=== PATIENT | male | born 1945 | race Hispanic/Latino ===

== ENCOUNTER 2022-04-19 13:23 | Inpatient (IN) | payer OTHER ==
[~2022-04-19] VITALS: Ht 172.7 cm; Wt 85.3 kg
[2022-04-19] VITALS (17 sets, daily range): BP systolic 87–152; BP diastolic 40–67
[2022-04-19 13:41] LABS: BASOPHILS % (AUTO) 0.2 % (0.0-5.0); EOSINOPHILS % (AUTO) 18.6 % (0.0-8.0); HEMATOCRIT 46.7 % (42-54); LYMPHOCYTES % (AUTO) 5.3 % (21.0-51.0); MEAN CORPUSCULAR HEMOGLOBIN 31.6 pg (27.0-33.0); MEAN CORPUSCULAR HGB CONC 34.3 g/dL (32.0-36.0); MEAN CORPUSCULAR VOLUME 92.3 fL (79-99); MONOCYTES % (AUTO) 8.6 % (3.0-13.0); NEUTROPHILS % (AUTO) 66.7 % (40.0-77.0); PLATELET COUNT (AUTO) 279 K/uL (130-400); RED BLOOD CELL COUNT(AUTO) 5.06 MIL/uL (4.50-6.20); RED CELL DISTRIBUTION WIDTH 12.5 % (11.0-15.5); WHITE BLOOD COUNT (AUTO) 21.1 K/uL (4.8-10.8)
[2022-04-19 13:50] LABS: CREATININE 1.8 mg/dL (0.5-1.5); POTASSIUM 4.2 mmol/L (3.5-5.1)
[2022-04-19 13:55] LABS: ALBUMIN 3.2 g/dL (3.5-5.0)
[2022-04-19] MEDS ORDERED: ZOSYN 3.375GM +NS 50ML IVPB ONE (14:00)
[2022-04-19] MEDS ORDERED: VANCOMYCIN 1G VIAL IVPB ONE (14:00)
[2022-04-19] MEDS ORDERED: 0.9%NACL 1000ML 1,000 ML IV ONE ×2 (14:30)
[2022-04-19] MEDS ORDERED: VANCOMYCIN 1G/250ML KIT 250 ML IV ONE (14:52)
[2022-04-19] MEDS ORDERED: THIAMINE HCL 100 MG/ML 2ML VIAL IVP SCH (15:30)
[2022-04-19] MEDS ORDERED: ONDANSETRON 4MG INJ IVP PRN ×2 (15:30)
[2022-04-19] MEDS ORDERED: FOLIC ACID 1 MG TABLET PO SCH (15:30)
[2022-04-19] MEDS ORDERED: VANCOMYCIN PROTOCOL PER PHARMACY IV SCH (15:30)
[2022-04-19] MEDS ORDERED: ACETAMINOPHEN 500 MG TABLET PO PRN (15:30)
[2022-04-19] MEDS ORDERED: COMPOUND IV REFRIGERATED 1 EACH IVSOLN MISC PRN (15:30)
[2022-04-19] MEDS: MEROPENEM 1 GM VIAL IVP SCH (16:06)
[2022-04-19] MEDS: CLINDAMYCIN IVPB 600MG/50ML 50 ML IV SCH ×2 (16:06→22:51)
[2022-04-19] MEDS: PANTOPRAZOLE 40 MG/VIAL IVP SCH (16:06)
[2022-04-19] MEDS: 0.9%NACL 1000ML 1,000 ML IV SCH (16:06)
[2022-04-19 16:37] LABS: HEMOGLOBIN A1C 5.4 % (4.0-6.0)
[2022-04-19] MEDS ORDERED: KETOROLAC 15MG/ML VIAL (15MG/ML) ONE (16:53)
[2022-04-19] MEDS ORDERED: HYDROMORPHONE 0.5 MG SYG (0.5MG/0.5ML) ONE (16:56)
[2022-04-19] MEDS ORDERED: ALBUMIN (HUMAN) 5% 500 ML IV ONE (17:05)
[2022-04-19 17:15] LABS: THYROID STIMULATING HORMONE 1.2 uIU/mL (0.36-3.74)
[2022-04-19] MEDS ORDERED: HYDROMORPHONE 0.5 MG SYG (0.5MG/0.5ML) IVP PRN (17:30)
[2022-04-19] MEDS ORDERED: BUPIVACAINE/PF 0.5% 10ML VIAL ONE (17:46)
[2022-04-19] MEDS ORDERED: LIDOCAINE HCL 1% 20 ML VIAL ONE (17:46)
[2022-04-19 18:59] LABS: INR 1.31 (0.85-1.15); PROTHROMBIN TIME 14.1 SEC (9.6-11.6)
[2022-04-19 19:00] LABS: PARTIAL THROMBOPLASTIN TIME 35.6 SEC (26.3-35.5)
[2022-04-19] MEDS ORDERED: MIDAZOLAM HCL 1 MG/ML 2ML VIAL ONE (19:07)
[2022-04-19] MEDS ORDERED: PROPOFOL 10 MG/ML 20ML VIAL IV ONE (19:08)
[2022-04-19] MEDS ORDERED: FENTANYL CITRATE PF 50 MCG/1 ML 2ML VIAL ONE (19:08)
[2022-04-19] MEDS ORDERED: EPHEDRINE SULFATE 50 MG/ML AMPULE ONE (22:46)
[2022-04-20] VITALS (14 sets, daily range): BP systolic 90–129; BP diastolic 53–83
[2022-04-20] MEDS: MEROPENEM 1 GM VIAL IVP SCH ×2 (03:21→16:04)
[2022-04-20 05:48] LABS: BASOPHILS % (AUTO) 0.1 % (0.0-5.0); EOSINOPHILS % (AUTO) 0.1 % (0.0-8.0); LYMPHOCYTES % (AUTO) 6.6 % (21.0-51.0); MEAN CORPUSCULAR HEMOGLOBIN 32.1 pg (27.0-33.0); MEAN CORPUSCULAR HGB CONC 32.9 g/dL (32.0-36.0); MEAN CORPUSCULAR VOLUME 97.4 fL (79-99); MONOCYTES % (AUTO) 9.5 % (3.0-13.0); NEUTROPHILS % (AUTO) 83.2 % (40.0-77.0); PLATELET COUNT (AUTO) 179 K/uL (130-400); RED BLOOD CELL COUNT(AUTO) 3.49 MIL/uL (4.50-6.20); RED CELL DISTRIBUTION WIDTH 12.8 % (11.0-15.5); WHITE BLOOD COUNT (AUTO) 13.4 K/uL (4.8-10.8)
[2022-04-20 06:11] LABS: CREATININE 0.8 mg/dL (0.5-1.5); CRP QUANTITATIVE 13.4 mg/L (0.00-9.0); MAGNESIUM 1.8 mg/dL (1.80-2.40); POTASSIUM 4.3 mmol/L (3.5-5.1); TOTAL PROTEIN, SERUM 6.1 g/dL (6.0-8.3)
[2022-04-20] MEDS: 0.9%NACL 1000ML 1,000 ML IV SCH ×2 (06:22→23:18)
[2022-04-20] MEDS: CLINDAMYCIN IVPB 600MG/50ML 50 ML IV SCH ×3 (06:27→23:18)
[2022-04-20] MEDS: ASPIRIN 81MG CHEW TAB PO SCH (08:31)
[2022-04-20] MEDS: VANCOMYCIN 1.25 GM/250 ML BAG 250 ML IV SCH (08:32)
[2022-04-20] MEDS: PANTOPRAZOLE 40 MG/VIAL IVP SCH (16:04)
[2022-04-20] MEDS: ATORVASTATIN 40 MG TABLET PO SCH (20:05)
[2022-04-21] VITALS: BP 129/83
[2022-04-21] MEDS: MEROPENEM 1 GM VIAL IVP SCH ×2 (03:44→15:48)
[2022-04-21 04:51] VITALS: BP 119/60
[2022-04-21] MEDS: CLINDAMYCIN IVPB 600MG/50ML 50 ML IV SCH (06:32)
[2022-04-21] MEDS: 0.9%NACL 1000ML 1,000 ML IV SCH (06:32)
[2022-04-21 06:38] LABS: BASOPHILS % (AUTO) 0.3 % (0.0-5.0); EOSINOPHILS % (AUTO) 0.3 % (0.0-8.0); LYMPHOCYTES % (AUTO) 8.4 % (21.0-51.0); MEAN CORPUSCULAR HEMOGLOBIN 32.1 pg (27.0-33.0); MEAN CORPUSCULAR HGB CONC 34.8 g/dL (32.0-36.0); MEAN CORPUSCULAR VOLUME 92.3 fL (79-99); MONOCYTES % (AUTO) 9.6 % (3.0-13.0); PLATELET COUNT (AUTO) 169 K/uL (130-400); RED BLOOD CELL COUNT(AUTO) 3.36 MIL/uL (4.50-6.20); RED CELL DISTRIBUTION WIDTH 12.7 % (11.0-15.5); WHITE BLOOD COUNT (AUTO) 11.6 K/uL (4.8-10.8)
[2022-04-21 06:59] LABS: ALBUMIN 2.3 g/dL (3.5-5.0); CREATININE 1.1 mg/dL (0.5-1.5); MAGNESIUM 1.6 mg/dL (1.80-2.40); POTASSIUM 3.5 mmol/L (3.5-5.1); TOTAL PROTEIN, SERUM 5.3 g/dL (6.0-8.3)
[2022-04-21 08:00] VITALS: BP 122/68
[2022-04-21] MEDS ORDERED: DIPH,PERTUSS(ACELL),TET VAC/PF 0.5 ML VIAL IM ONE (09:00)
[2022-04-21] MEDS: ASPIRIN 81MG CHEW TAB PO SCH (09:30)
[2022-04-21] MEDS: VANCOMYCIN 1.25 GM/250 ML BAG 250 ML IV SCH (09:30)
[2022-04-21 11:12] VITALS: BP 99/76
[2022-04-21] MEDS: PANTOPRAZOLE 40 MG/VIAL IVP SCH (15:48)
[2022-04-21 16:00] VITALS: BP 107/73
[2022-04-21] MEDS ORDERED: POTASSIUM CHLORIDE 20MEQ/100ML 100 ML IV PRN (19:00)
[2022-04-21] MEDS ORDERED: KCL 20 MEQ ERTAB PO PRN (19:00)
[2022-04-21] MEDS ORDERED: LIDOCAINE HCL-MPF 1% 2ML VIAL IV PRN (19:00)
[2022-04-21] MEDS: MAGNESIUM 2GM PREMIX 50ML 50 ML IV PRN (19:33)
[2022-04-21] MEDS: ATORVASTATIN 40 MG TABLET PO SCH (19:34)
[2022-04-21] MEDS: POTASSIUM CHLORIDE 10% ELIXIR 20 MEQ/15 ML UDCUP PO PRN (19:34)
[2022-04-21 20:00] VITALS: BP 125/64
[2022-04-22] VITALS (7 sets, daily range): BP systolic 115–142; BP diastolic 59–82
[2022-04-22] MEDS: MEROPENEM 1 GM VIAL IVP SCH ×2 (01:18→16:07)
[2022-04-22] MEDS: POTASSIUM CHLORIDE 10% ELIXIR 20 MEQ/15 ML UDCUP PO PRN (01:18)
[2022-04-22] MEDS: ACETAMINOPHEN 500 MG TABLET PO PRN (01:18)
[2022-04-22] MEDS: ASPIRIN 81MG CHEW TAB PO SCH (09:08)
[2022-04-22] MEDS: VANCOMYCIN 1.25 GM/250 ML BAG 250 ML IV SCH (09:09)
[2022-04-22] MEDS ORDERED: BACITRACIN 1 EACH PACKET TP ONE ×2 (11:59→12:00)
[2022-04-22] MEDS: PANTOPRAZOLE 40 MG/VIAL IVP SCH (16:07)
[2022-04-22] MEDS: ATORVASTATIN 40 MG TABLET PO SCH (20:33)
[2022-04-22 21:31] LABS: CREATININE,URINE RANDOM 144 mg/dL (30-135); SODIUM,URINE RANDOM 92 mmol/l (40-220)
[2022-04-22] MEDS: Vitamin B Complex/Vit C/Folic Acid PO SCH (22:03)
[2022-04-23] MEDS: MEROPENEM 1 GM VIAL IVP SCH ×2 (04:09→16:48)
[2022-04-23 04:34] VITALS: BP 128/79
[2022-04-23 08:00] VITALS: BP 164/75
[2022-04-23] MEDS: VANCOMYCIN 1.25 GM/250 ML BAG 250 ML IV SCH (08:47)
[2022-04-23] MEDS: ASPIRIN 81MG CHEW TAB PO SCH (08:48)
[2022-04-23] MEDS: ENOXAPARIN SODIUM 40 MG/0.4 ML SYRINGE SQ SCH (08:48)
[2022-04-23 12:00] VITALS: BP 106/63
[2022-04-23 16:00] VITALS: BP 121/53
[2022-04-23] MEDS: PANTOPRAZOLE 40 MG/VIAL IVP SCH (16:49)
[2022-04-23] MEDS: Vitamin B Complex/Vit C/Folic Acid PO SCH (20:04)
[2022-04-23] MEDS: ATORVASTATIN 40 MG TABLET PO SCH (20:04)
[2022-04-23 20:08] VITALS: BP 119/79
[2022-04-23 23:09] VITALS: BP 114/74
[2022-04-24 03:27] VITALS: BP 106/68
[2022-04-24] MEDS: MEROPENEM 1 GM VIAL IVP SCH ×2 (03:39→14:04)
[2022-04-24 04:40] LABS: BASOPHILS % (AUTO) 0.6 % (0.0-5.0); EOSINOPHILS % (AUTO) 5.3 % (0.0-8.0); HEMATOCRIT 31.1 % (42-54); LYMPHOCYTES % (AUTO) 19.9 % (21.0-51.0); MEAN CORPUSCULAR HEMOGLOBIN 31.7 pg (27.0-33.0); MEAN CORPUSCULAR HGB CONC 34.4 g/dL (32.0-36.0); MONOCYTES % (AUTO) 12.3 % (3.0-13.0); NEUTROPHILS % (AUTO) 60.9 % (40.0-77.0); PLATELET COUNT (AUTO) 222 K/uL (130-400); RED BLOOD CELL COUNT(AUTO) 3.38 MIL/uL (4.50-6.20); RED CELL DISTRIBUTION WIDTH 12.4 % (11.0-15.5); WHITE BLOOD COUNT (AUTO) 9.6 K/uL (4.8-10.8)
[2022-04-24 04:56] LABS: MAGNESIUM 1.6 mg/dL (1.80-2.40); PHOSPHORUS 2.4 mg/dL (2.5-4.9); POTASSIUM 3.3 mmol/L (3.5-5.1)
[2022-04-24] MEDS: POTASSIUM CHLORIDE 10% ELIXIR 20 MEQ/15 ML UDCUP PO PRN ×3 (05:34→16:47)
[2022-04-24] MEDS: MAGNESIUM 2GM PREMIX 50ML 50 ML IV PRN (05:35)
[2022-04-24] MEDS ORDERED: BACITRACIN 1 EACH PACKET TP ONE (05:49)
[2022-04-24 08:00] VITALS: BP 114/61
[2022-04-24] MEDS: ASPIRIN 81MG CHEW TAB PO SCH (09:54)
[2022-04-24] MEDS: ENOXAPARIN SODIUM 40 MG/0.4 ML SYRINGE SQ SCH (09:55)
[2022-04-24] MEDS: VANCOMYCIN 1.25 GM/250 ML BAG 250 ML IV SCH (09:56)
[2022-04-24 11:32] VITALS: BP 130/72
[2022-04-24] MEDS: PANTOPRAZOLE 40 MG/VIAL IVP SCH (15:47)
[2022-04-24 16:00] VITALS: BP 100/64
[2022-04-24 19:42] VITALS: BP 118/63
[2022-04-24] MEDS: Vitamin B Complex/Vit C/Folic Acid PO SCH (20:58)
[2022-04-24] MEDS: ATORVASTATIN 40 MG TABLET PO SCH (20:58)
[2022-04-24 23:05] VITALS: BP 125/71
[2022-04-25 03:32] VITALS: BP 123/63
[2022-04-25] MEDS: ACETAMINOPHEN 500 MG TABLET PO PRN (03:58)
[2022-04-25 07:59] LABS: BASOPHILS % (AUTO) 0.6 % (0.0-5.0); EOSINOPHILS % (AUTO) 6.9 % (0.0-8.0); HEMATOCRIT 31.5 % (42-54); LYMPHOCYTES % (AUTO) 23.6 % (21.0-51.0); MEAN CORPUSCULAR HEMOGLOBIN 31.9 pg (27.0-33.0); MEAN CORPUSCULAR HGB CONC 33.7 g/dL (32.0-36.0); MEAN CORPUSCULAR VOLUME 94.9 fL (79-99); MONOCYTES % (AUTO) 13.9 % (3.0-13.0); NEUTROPHILS % (AUTO) 53.8 % (40.0-77.0); PLATELET COUNT (AUTO) 237 K/uL (130-400); RED BLOOD CELL COUNT(AUTO) 3.32 MIL/uL (4.50-6.20); RED CELL DISTRIBUTION WIDTH 12.7 % (11.0-15.5); WHITE BLOOD COUNT (AUTO) 8.2 K/uL (4.8-10.8)
[2022-04-25 08:00] VITALS: BP 106/58
[2022-04-25 08:17] LABS: POTASSIUM 3.6 mmol/L (3.5-5.1)
[2022-04-25] MEDS: ENOXAPARIN SODIUM 40 MG/0.4 ML SYRINGE SQ SCH (08:39)
[2022-04-25] MEDS: VANCOMYCIN 1.25 GM/250 ML BAG 250 ML IV SCH (08:39)
[2022-04-25] MEDS: ASPIRIN 81MG CHEW TAB PO SCH (08:40)
[2022-04-25 12:00] VITALS: BP 112/62
[2022-04-25] MEDS: PANTOPRAZOLE 40 MG/VIAL IVP SCH (15:53)
[2022-04-25 16:00] VITALS: BP 125/64
[2022-04-25] MEDS: Vitamin B Complex/Vit C/Folic Acid PO SCH (19:41)
[2022-04-25] MEDS: ATORVASTATIN 40 MG TABLET PO SCH (19:42)
[2022-04-25 20:29] VITALS: BP 122/71
[2022-04-25 23:17] VITALS: BP 120/67
[2022-04-26 03:13] VITALS: BP 130/68
[2022-04-26 05:41] LABS: BASOPHILS % (AUTO) 0.6 % (0.0-5.0); HEMATOCRIT 30.6 % (42-54); LYMPHOCYTES % (AUTO) 22.6 % (21.0-51.0); MEAN CORPUSCULAR HEMOGLOBIN 32.1 pg (27.0-33.0); MEAN CORPUSCULAR HGB CONC 34.6 g/dL (32.0-36.0); MEAN CORPUSCULAR VOLUME 92.7 fL (79-99); MONOCYTES % (AUTO) 13.3 % (3.0-13.0); NEUTROPHILS % (AUTO) 54.9 % (40.0-77.0); PLATELET COUNT (AUTO) 243 K/uL (130-400); RED CELL DISTRIBUTION WIDTH 12.8 % (11.0-15.5); WHITE BLOOD COUNT (AUTO) 7.7 K/uL (4.8-10.8)
[2022-04-26 05:49] LABS: CREATININE 1.1 mg/dL (0.5-1.5); POTASSIUM 3.5 mmol/L (3.5-5.1)
[2022-04-26 07:30] VITALS: BP 114/63
[2022-04-26] MEDS: ENOXAPARIN SODIUM 40 MG/0.4 ML SYRINGE SQ SCH (09:36)
[2022-04-26] MEDS: ASPIRIN 81MG CHEW TAB PO SCH (09:36)
[2022-04-26] MEDS: VANCOMYCIN 1.25 GM/250 ML BAG 250 ML IV SCH (09:36)
[2022-04-26 11:30] VITALS: BP 120/68
[2022-04-26 15:30] VITALS: BP 111/50
[2022-04-26] MEDS: PANTOPRAZOLE 40 MG/VIAL IVP SCH (17:34)
[2022-04-26 20:00] VITALS: BP 155/88
[2022-04-26] MEDS: Vitamin B Complex/Vit C/Folic Acid PO SCH (20:35)
[2022-04-26] MEDS: ATORVASTATIN 40 MG TABLET PO SCH (20:35)
[2022-04-27] VITALS: BP 126/77
[2022-04-27 04:00] VITALS: BP 131/70
[2022-04-27] MEDS: ACETAMINOPHEN 500 MG TABLET PO PRN (06:19)
[2022-04-27 07:30] VITALS: BP 93/51
[2022-04-27] MEDS: ASPIRIN 81MG CHEW TAB PO SCH (09:46)
[2022-04-27] MEDS: VANCOMYCIN 1.25 GM/250 ML BAG 250 ML IV SCH (09:46)
[2022-04-27] MEDS: ENOXAPARIN SODIUM 40 MG/0.4 ML SYRINGE SQ SCH (09:46)
[2022-04-27 11:30] VITALS: BP 102/51
[2022-04-27] MEDS ORDERED: ATOR40TA69 PO (12:20)
[2022-04-27] MEDS ORDERED: DOXY100T2 PO (12:20)
[2022-04-27] MEDS ORDERED: ASPI-1005 PO (12:20)
[2022-04-27] MEDS: PANTOPRAZOLE 40 MG/VIAL IVP SCH (15:30)
[2022-04-28] MEDS ORDERED: VANCOMYCIN 1G/250ML KIT 250 ML IV SCH (09:00)
== END 2022-04-27 17:00 | disposition home or self-care (01) | DRG 853 ==
LOC: EDH 13:23 → EDHIP 15:06 → 4BH 16:32
PROVIDERS: ADMIT Internal Medicine; ATTEND Internal Medicine
PROC: 0Y6N0ZB Detachment at Left Foot, Partial 2nd Ray, Open Approach (ICD-10-PCS; 2022-04-19)
PROC: 0Y6N0ZC Detachment at Left Foot, Partial 3rd Ray, Open Approach (ICD-10-PCS; 2022-04-19)
PROC: 0Y6N0ZD Detachment at Left Foot, Partial 4th Ray, Open Approach (ICD-10-PCS; 2022-04-19)
PROC: 0Y6N0ZF Detachment at Left Foot, Partial 5th Ray, Open Approach (ICD-10-PCS; 2022-04-19)
PROC: 0Y6N0Z9 Detachment at Left Foot, Partial 1st Ray, Open Approach (ICD-10-PCS; principal; 2022-04-19 20:18)
DX: A41.02 Sepsis due to Methicillin resistant Staphylococcus aureus (principal); M72.6 Necrotizing fasciitis; M86.172 Other acute osteomyelitis, left ankle and foot; M62.82 Rhabdomyolysis; Z20.822 Contact with and (suspected) exposure to COVID-19; E11.52 Type 2 diabetes mellitus with diabetic peripheral angiopathy with gangrene; E44.0 Moderate protein-calorie malnutrition; E87.20 Acidosis, unspecified; L03.116 Cellulitis of left lower limb; N17.9 Acute kidney failure, unspecified; D64.9 Anemia, unspecified; E11.69 Type 2 diabetes mellitus with other specified complication; E78.5 Hyperlipidemia, unspecified; I10 Essential (primary) hypertension; Z91.199 Patient's noncompliance with other medical treatment and regimen due to unspecified reason; Z74.01 Bed confinement status; Z68.28 Body mass index [BMI] 28.0-28.9, adult
CPT/HCPCS: 36415; 70450; 71045; 73630; 76770; 80048; 80053; 80202; 82550; 82570; 83036; 83605; 83735; 84100; 84145; 84300; 84443; 85025; 85610; 85651; 85730; 86140; 87040; 87077; 87186; 87635; 87804; 90715; 93925; 96365; 97039; C9113; G0378; J1170; J1650; J1885; J2185; J2250; J2543; J2704; J3010; J3370; J3411; J3475; J3490; J7030; P9045

== ENCOUNTER 2022-07-07 12:23 | Inpatient (IN) | payer OTHER ==
[~2022-07-07] VITALS: Ht 172.7 cm; Wt 78.0 kg
[~2022-07-07 12:23] MED LIST: ASPI-1005 PO; ATOR40TA69 PO; DOXY100T2 PO
[2022-07-07] MEDS ORDERED: 0.9%NACL 1000ML 1,000 ML IV ONE (13:00)
[2022-07-07] MEDS ORDERED: ZOSYN 3.375GM +NS 50ML IVPB ONE (13:00)
[2022-07-07 13:36] LABS: BASOPHILS % (AUTO) 0.3 % (0.0-5.0); EOSINOPHILS % (AUTO) 0.2 % (0.0-8.0); LYMPHOCYTES % (AUTO) 7.6 % (21.0-51.0); MEAN CORPUSCULAR HEMOGLOBIN 31.7 pg (27.0-33.0); MEAN CORPUSCULAR HGB CONC 34.1 g/dL (32.0-36.0); MEAN CORPUSCULAR VOLUME 92.9 fL (79-99); MONOCYTES % (AUTO) 8.3 % (3.0-13.0); PLATELET COUNT (AUTO) 219 K/uL (130-400); RED CELL DISTRIBUTION WIDTH 13.2 % (11.0-15.5); WHITE BLOOD COUNT (AUTO) 17.2 K/uL (4.8-10.8)
[2022-07-07 13:56] LABS: INR 1.19 (0.85-1.15); PROTHROMBIN TIME 12.8 SEC (9.6-11.6)
[2022-07-07 13:57] LABS: PARTIAL THROMBOPLASTIN TIME 36.3 SEC (26.3-35.5)
[2022-07-07 13:58] LABS: CREATININE 1.2 mg/dL (0.5-1.5); POTASSIUM 3.7 mmol/L (3.5-5.1)
[2022-07-07 14:06] LABS: ALBUMIN 2.9 g/dL (3.5-5.0); TOTAL PROTEIN, SERUM 7.4 g/dL (6.0-8.3)
[2022-07-07 14:08] LABS: CRP QUANTITATIVE 169.8 mg/L (0.00-9.0)
[2022-07-07 14:37] LABS: ERYTHROCYTE SEDIMENTATION RATE 66 MM/HR (0-20)
[2022-07-07 17:03] LABS: APPEARANCE,URINE CLOUDY (CLEAR); BILIRUBIN,URINE NEGATIVE (NEGATIVE); COLOR,URINE YELLOW (YELLOW); GLUCOSE, URINE (UA) NEGATIVE (NEGATIVE); KETONES,URINE 40 mg/dL (NEGATIVE); LEUKOCYTE ESTERASE ,URINE 500 Leu/uL (NEGATIVE); NITRATE,URINE 2+ (NEGATIVE); OCCULT BLOOD,URINE NEGATIVE (NEGATIVE); PH,URINE 7.5 (5.0-8.0); PROTEIN,URINE 70 mg/dL (NEGATIVE); UROBILINOGEN,URINE 0.2 mg/dL (0.2-1.0)
[2022-07-07] MEDS ORDERED: ONDANSETRON 4MG INJ IV PRN (17:30)
[2022-07-07] MEDS ORDERED: MORPHINE 2 MG SYG IVP PRN (17:30)
[2022-07-07] MEDS ORDERED: ACETAMINOPHEN 325 MG TAB PO PRN (17:30)
[2022-07-07] MEDS ORDERED: VANCOMYCIN PROTOCOL PER PHARMACY IV PRN ×2 (17:30→18:00)
[2022-07-07] MEDS ORDERED: HYDRALAZINE 20MG/ML VIAL IV PRN (17:30)
[2022-07-07 18:03] LABS: BACTERIA,URINE RARE /HPF (None Seen); MUCUS,URINE FEW LPF (None Seen); SQUAMOUS EPITHELIAL CELL,UR RARE /HPF (0-2); WBC,URINE TNTC /HPF (0-1)
[2022-07-07] MEDS: LACTATED RINGERS 1000ML 1,000 ML IV SCH ×2 (18:22→20:21)
[2022-07-07] MEDS ORDERED: POTASSIUM CHLORIDE 10% ELIXIR 20 MEQ/15 ML UDCUP PO PRN (19:00)
[2022-07-07] MEDS ORDERED: POTASSIUM CHLORIDE 20MEQ/100ML 100 ML IV PRN (19:00)
[2022-07-07 19:12] VITALS: BP 175/79
[2022-07-07 19:21] VITALS: BP 107/64
[2022-07-07] MEDS: ZOSYN 3.375GM+NS 50ML 50 ML IVPB SCH (20:21)
[2022-07-07] MEDS: VANCOMYCIN 1.5 GM/250 ML BAG 250 ML IV SCH (20:21)
[2022-07-07] MEDS: HEPARIN 5,000 UNIT VIAL SQ SCH (20:21)
[2022-07-08 00:21] VITALS: BP 105/53
[2022-07-08 03:21] VITALS: BP 111/66
[2022-07-08 03:47] LABS: HEMATOCRIT 36.9 % (42-54); MEAN CORPUSCULAR HEMOGLOBIN 31.5 pg (27.0-33.0); MEAN CORPUSCULAR HGB CONC 33.3 g/dL (32.0-36.0); MEAN CORPUSCULAR VOLUME 94.4 fL (79-99); RED BLOOD CELL COUNT(AUTO) 3.91 MIL/uL (4.50-6.20); RED CELL DISTRIBUTION WIDTH 13.3 % (11.0-15.5); WHITE BLOOD COUNT (AUTO) 15.1 K/uL (4.8-10.8)
[2022-07-08 03:58] LABS: CREATININE 1.1 mg/dL (0.5-1.5); MAGNESIUM 1.5 mg/dL (1.80-2.40); POTASSIUM 3.7 mmol/L (3.5-5.1)
[2022-07-08] MEDS: ZOSYN 3.375GM+NS 50ML 50 ML IVPB SCH ×3 (04:50→21:34)
[2022-07-08] MEDS: KCL 20 MEQ ERTAB PO PRN ×3 (04:51→13:19)
[2022-07-08 07:47] VITALS: BP 121/72
[2022-07-08] MEDS: MAGNESIUM 2GM PREMIX 50ML 50 ML IV PRN (08:58)
[2022-07-08] MEDS: HEPARIN 5,000 UNIT VIAL SQ SCH ×3 (08:59→21:00)
[2022-07-08] MEDS ORDERED: VANCOMYCIN 1G/250ML KIT 250 ML IV SCH (09:00)
[2022-07-08] MEDS ORDERED: MAGNESIUM 2GM PREMIX 50ML 50 ML IV PRN ×2 (09:00→09:30)
[2022-07-08 11:35] VITALS: BP 105/58
[2022-07-08] MEDS: LACTATED RINGERS 1000ML 1,000 ML IV SCH ×2 (13:18→23:30)
[2022-07-08 16:16] VITALS: BP 107/58
[2022-07-08] MEDS: VANCOMYCIN 1.5 GM/250 ML BAG 250 ML IV SCH (18:46)
[2022-07-08 19:12] VITALS: BP 113/58
[2022-07-09 00:12] VITALS: BP 130/72
[2022-07-09 03:12] VITALS: BP 141/64
[2022-07-09 04:00] LABS: HEMATOCRIT 37.3 % (42-54); MEAN CORPUSCULAR HEMOGLOBIN 31.7 pg (27.0-33.0); MEAN CORPUSCULAR HGB CONC 33.8 g/dL (32.0-36.0); RED BLOOD CELL COUNT(AUTO) 3.97 MIL/uL (4.50-6.20); RED CELL DISTRIBUTION WIDTH 13.1 % (11.0-15.5); WHITE BLOOD COUNT (AUTO) 9.9 K/uL (4.8-10.8)
[2022-07-09 04:29] LABS: ALBUMIN 2.5 g/dL (3.5-5.0); CREATININE 0.9 mg/dL (0.5-1.5); MAGNESIUM 2.1 mg/dL (1.80-2.40); POTASSIUM 4.5 mmol/L (3.5-5.1); TOTAL PROTEIN, SERUM 6.4 g/dL (6.0-8.3)
[2022-07-09] MEDS: ZOSYN 3.375GM+NS 50ML 50 ML IVPB SCH ×3 (05:25→21:17)
[2022-07-09 07:30] VITALS: BP 148/74
[2022-07-09] MEDS: HEPARIN 5,000 UNIT VIAL SQ SCH ×3 (08:20→21:30)
[2022-07-09] MEDS: LACTATED RINGERS 1000ML 1,000 ML IV SCH ×2 (08:24→21:17)
[2022-07-09 11:15] VITALS: BP 132/73
[2022-07-09 16:00] VITALS: BP 136/68
[2022-07-09 20:00] VITALS: BP 113/72
[2022-07-09] MEDS: VANCOMYCIN 1.5 GM/250 ML BAG 250 ML IV SCH (21:17)
[2022-07-10] VITALS: BP 108/62
[2022-07-10 04:00] VITALS: BP 139/71
[2022-07-10 05:50] LABS: MEAN CORPUSCULAR HEMOGLOBIN 31.6 pg (27.0-33.0); MEAN CORPUSCULAR HGB CONC 34.4 g/dL (32.0-36.0); MEAN CORPUSCULAR VOLUME 91.6 fL (79-99); RED BLOOD CELL COUNT(AUTO) 3.93 MIL/uL (4.50-6.20); RED CELL DISTRIBUTION WIDTH 12.9 % (11.0-15.5); WHITE BLOOD COUNT (AUTO) 7.8 K/uL (4.8-10.8)
[2022-07-10 06:41] LABS: ALBUMIN 2.6 g/dL (3.5-5.0); CREATININE 1.3 mg/dL (0.5-1.5); MAGNESIUM 1.7 mg/dL (1.80-2.40); POTASSIUM 3.7 mmol/L (3.5-5.1); TOTAL PROTEIN, SERUM 6.6 g/dL (6.0-8.3)
[2022-07-10] MEDS: ZOSYN 3.375GM+NS 50ML 50 ML IVPB SCH ×3 (06:49→20:32)
[2022-07-10] MEDS: LACTATED RINGERS 1000ML 1,000 ML IV SCH (06:49)
[2022-07-10 08:00] VITALS: BP 124/57
[2022-07-10] MEDS: HEPARIN 5,000 UNIT VIAL SQ SCH ×3 (09:07→20:32)
[2022-07-10 12:00] VITALS: BP 108/57
[2022-07-10 16:00] VITALS: BP 113/67
[2022-07-10] MEDS ORDERED: IOHEXOL 350 MG/ML 100ML INFUS..BTL IV ONE (16:41)
[2022-07-10] MEDS: VANCOMYCIN 1.5 GM/250 ML BAG 250 ML IV SCH (19:05)
[2022-07-10 20:00] VITALS: BP 109/61
[2022-07-11] VITALS: BP 120/73
[2022-07-11] MEDS: LACTATED RINGERS 1000ML 1,000 ML IV SCH ×3 (01:05→21:40)
[2022-07-11 04:00] VITALS: BP 123/73
[2022-07-11] MEDS: ZOSYN 3.375GM+NS 50ML 50 ML IVPB SCH ×3 (04:33→21:43)
[2022-07-11 05:58] LABS: BASOPHILS % (AUTO) 1.3 % (0.0-5.0); HEMATOCRIT 37.1 % (42-54); LYMPHOCYTES % (AUTO) 21.1 % (21.0-51.0); MEAN CORPUSCULAR HEMOGLOBIN 31.2 pg (27.0-33.0); MEAN CORPUSCULAR HGB CONC 33.2 g/dL (32.0-36.0); MEAN CORPUSCULAR VOLUME 94.2 fL (79-99); MONOCYTES % (AUTO) 16.1 % (3.0-13.0); NEUTROPHILS % (AUTO) 57.2 % (40.0-77.0); PLATELET COUNT (AUTO) 248 K/uL (130-400); RED BLOOD CELL COUNT(AUTO) 3.94 MIL/uL (4.50-6.20); RED CELL DISTRIBUTION WIDTH 13.1 % (11.0-15.5)
[2022-07-11 06:11] LABS: ALBUMIN 2.5 g/dL (3.5-5.0); CREATININE 1.9 mg/dL (0.5-1.5); MAGNESIUM 1.8 mg/dL (1.80-2.40); POTASSIUM 3.6 mmol/L (3.5-5.1); TOTAL PROTEIN, SERUM 6.5 g/dL (6.0-8.3)
[2022-07-11] MEDS: MAGNESIUM 2GM PREMIX 50ML 50 ML IV PRN (06:36)
[2022-07-11] MEDS: KCL 20 MEQ ERTAB PO PRN ×2 (06:36→07:47)
[2022-07-11] MEDS: HEPARIN 5,000 UNIT VIAL SQ SCH ×3 (07:50→21:43)
[2022-07-11 08:00] VITALS: BP 101/62
[2022-07-11 11:32] VITALS: BP 108/48
[2022-07-11 16:00] VITALS: BP 129/74
[2022-07-11] MEDS: VANCOMYCIN 1.5 GM/250 ML BAG 250 ML IV SCH (16:31)
[2022-07-12] VITALS (7 sets, daily range): BP systolic 100–139; BP diastolic 44–74
[2022-07-12] MEDS: ZOSYN 3.375GM+NS 50ML 50 ML IVPB SCH ×3 (04:45→20:15)
[2022-07-12 06:04] LABS: BASOPHILS % (AUTO) 1.6 % (0.0-5.0); EOSINOPHILS % (AUTO) 5.1 % (0.0-8.0); HEMATOCRIT 34.3 % (42-54); LYMPHOCYTES % (AUTO) 28.2 % (21.0-51.0); MEAN CORPUSCULAR HEMOGLOBIN 31.4 pg (27.0-33.0); MEAN CORPUSCULAR HGB CONC 32.9 g/dL (32.0-36.0); MEAN CORPUSCULAR VOLUME 95.3 fL (79-99); MONOCYTES % (AUTO) 13.7 % (3.0-13.0); NEUTROPHILS % (AUTO) 51.1 % (40.0-77.0); PLATELET COUNT (AUTO) 227 K/uL (130-400); RED CELL DISTRIBUTION WIDTH 13.2 % (11.0-15.5); WHITE BLOOD COUNT (AUTO) 6.1 K/uL (4.8-10.8)
[2022-07-12 06:22] LABS: ALBUMIN 2.2 g/dL (3.5-5.0); CREATININE 1.9 mg/dL (0.5-1.5); MAGNESIUM 1.9 mg/dL (1.80-2.40); POTASSIUM 3.3 mmol/L (3.5-5.1)
[2022-07-12] MEDS: KCL 20 MEQ ERTAB PO PRN (06:31)
[2022-07-12] MEDS: LACTATED RINGERS 1000ML 1,000 ML IV SCH (06:31)
[2022-07-12] MEDS: HEPARIN 5,000 UNIT VIAL SQ SCH ×3 (09:55→20:15)
[2022-07-12] MEDS: TAMSULOSIN HCL 0.4 MG CAP.ER.24H PO SCH (09:56)
[2022-07-12] MEDS: 0.9%NACL 1000ML 1,000 ML IV SCH ×2 (09:56→21:44)
[2022-07-12 22:18] LABS: APPEARANCE,URINE CLEAR (CLEAR); BILIRUBIN,URINE NEGATIVE (NEGATIVE); COLOR,URINE YELLOW (YELLOW); GLUCOSE, URINE (UA) NEGATIVE (NEGATIVE); KETONES,URINE NEGATIVE (NEGATIVE); LEUKOCYTE ESTERASE ,URINE NEGATIVE Leu/uL (NEGATIVE); NITRATE,URINE NEGATIVE (NEGATIVE); OCCULT BLOOD,URINE NEGATIVE (NEGATIVE); PROTEIN,URINE NEGATIVE (NEGATIVE); UROBILINOGEN,URINE 0.2 mg/dL (0.2-1.0)
[2022-07-13 04:00] VITALS: BP 127/56
[2022-07-13] MEDS: ZOSYN 3.375GM+NS 50ML 50 ML IVPB SCH ×3 (04:46→21:02)
[2022-07-13 06:25] LABS: BASOPHILS % (AUTO) 1.1 % (0.0-5.0); EOSINOPHILS % (AUTO) 5.6 % (0.0-8.0); HEMATOCRIT 33.6 % (42-54); LYMPHOCYTES % (AUTO) 23.8 % (21.0-51.0); MEAN CORPUSCULAR HEMOGLOBIN 31.7 pg (27.0-33.0); MEAN CORPUSCULAR HGB CONC 33.9 g/dL (32.0-36.0); MEAN CORPUSCULAR VOLUME 93.3 fL (79-99); MONOCYTES % (AUTO) 12.8 % (3.0-13.0); NEUTROPHILS % (AUTO) 56.2 % (40.0-77.0); PLATELET COUNT (AUTO) 238 K/uL (130-400); RED CELL DISTRIBUTION WIDTH 13.2 % (11.0-15.5); WHITE BLOOD COUNT (AUTO) 6.3 K/uL (4.8-10.8)
[2022-07-13 06:36] LABS: ALBUMIN 2.3 g/dL (3.5-5.0); CREATININE 1.6 mg/dL (0.5-1.5); MAGNESIUM 1.7 mg/dL (1.80-2.40); POTASSIUM 3.3 mmol/L (3.5-5.1); TOTAL PROTEIN, SERUM 6.1 g/dL (6.0-8.3)
[2022-07-13 07:56] VITALS: BP 137/64
[2022-07-13] MEDS: Vitamin B Complex/Vit C/Folic Acid PO SCH (08:17)
[2022-07-13] MEDS: TAMSULOSIN HCL 0.4 MG CAP.ER.24H PO SCH (08:17)
[2022-07-13] MEDS: HEPARIN 5,000 UNIT VIAL SQ SCH ×3 (08:18→21:04)
[2022-07-13] MEDS: 0.9%NACL 1000ML 1,000 ML IV SCH (11:10)
[2022-07-13 12:00] VITALS: BP 104/53
[2022-07-13] MEDS ORDERED: POTASSIUM CHLORIDE 10% ELIXIR 20 MEQ/15 ML UDCUP PO PRN (12:00)
[2022-07-13] MEDS ORDERED: POTASSIUM CHLORIDE 10MEQ/100ML 100 ML IV PRN (12:00)
[2022-07-13] MEDS: KCL 20 MEQ ERTAB PO PRN ×3 (13:17→18:27)
[2022-07-13 16:00] VITALS: BP 104/56
[2022-07-13 19:00] VITALS: BP 97/47
[2022-07-13 23:49] VITALS: BP 103/55
[2022-07-14] MEDS: 0.9%NACL 1000ML 1,000 ML IV SCH ×2 (00:57→13:50)
[2022-07-14 04:38] VITALS: BP 114/58
[2022-07-14] MEDS: ZOSYN 3.375GM+NS 50ML 50 ML IVPB SCH ×2 (05:02→12:05)
[2022-07-14 05:12] LABS: HEMATOCRIT 32.7 % (42-54); MEAN CORPUSCULAR HEMOGLOBIN 31.5 pg (27.0-33.0); MEAN CORPUSCULAR HGB CONC 33.6 g/dL (32.0-36.0); MEAN CORPUSCULAR VOLUME 93.7 fL (79-99); RED BLOOD CELL COUNT(AUTO) 3.49 MIL/uL (4.50-6.20); RED CELL DISTRIBUTION WIDTH 13.3 % (11.0-15.5); WHITE BLOOD COUNT (AUTO) 6.7 K/uL (4.8-10.8)
[2022-07-14 05:22] LABS: CREATININE 1.6 mg/dL (0.5-1.5)
[2022-07-14 08:00] VITALS: BP 128/45
[2022-07-14] MEDS: TAMSULOSIN HCL 0.4 MG CAP.ER.24H PO SCH (08:30)
[2022-07-14] MEDS: Vitamin B Complex/Vit C/Folic Acid PO SCH (08:30)
[2022-07-14] MEDS: HEPARIN 5,000 UNIT VIAL SQ SCH ×2 (08:36→13:58)
[2022-07-14 11:59] VITALS: BP 143/72
[2022-07-14] MEDS ORDERED: Folic Acid/Vitamin B Comp W-C PO (13:26)
[2022-07-14] MEDS ORDERED: CLOP-31 PO (13:26)
[2022-07-14] MEDS ORDERED: LEVO250S9 PO (13:26)
[2022-07-14 15:59] VITALS: BP 115/63
== END 2022-07-14 16:42 | disposition home or self-care (01) | DRG 872 ==
LOC: EDH 12:23 → EDHIP 12:24 → UNDOADMIN 17:08 → 2DH 23:03 → 3BH 07-09 12:45
PROVIDERS: ADMIT Internal Medicine; ATTEND Internal Medicine
DX: A41.9 Sepsis, unspecified organism (principal); L03.116 Cellulitis of left lower limb; E44.0 Moderate protein-calorie malnutrition; N39.0 Urinary tract infection, site not specified; N18.5 Chronic kidney disease, stage 5; N17.9 Acute kidney failure, unspecified; I12.0 Hypertensive chronic kidney disease with stage 5 chronic kidney disease or end stage renal disease; L03.115 Cellulitis of right lower limb; D63.8 Anemia in other chronic diseases classified elsewhere; B96.20 Unspecified Escherichia coli [E. coli] as the cause of diseases classified elsewhere; E11.22 Type 2 diabetes mellitus with diabetic chronic kidney disease; E78.5 Hyperlipidemia, unspecified; E11.65 Type 2 diabetes mellitus with hyperglycemia; E86.0 Dehydration; E87.6 Hypokalemia; N14.11 Contrast-induced nephropathy; T50.8X5A Adverse effect of diagnostic agents, initial encounter; Z79.02 Long term (current) use of antithrombotics/antiplatelets; Z74.01 Bed confinement status; Z91.199 Patient's noncompliance with other medical treatment and regimen due to unspecified reason; Z89.432 Acquired absence of left foot; Z79.82 Long term (current) use of aspirin; Z79.899 Other long term (current) drug therapy; Z68.26 Body mass index [BMI] 26.0-26.9, adult
CPT/HCPCS: 36415; 73630; 73706; 73718; 76770; 80048; 80053; 80202; 81001; 81003; 82948; 83605; 83735; 85025; 85027; 85610; 85651; 85730; 86140; 87040; 87070; 87077; 87088; 87186; 93005; 93926; G0378; J1644; J2543; J3475; J7030; J7120; Q9967

== ENCOUNTER 2022-07-23 13:34 | Observation (INO) | payer OTHER ==
[~2022-07-23] VITALS: Ht 172.7 cm; Wt 79.8 kg
[~2022-07-23 13:34] MED LIST changes: +CLOP-31 PO; -DOXY100T2 PO; +Folic Acid/Vitamin B Comp W-C PO; +LEVO250S9 PO
[2022-07-23 20:00] LABS: APPEARANCE,URINE CLEAR (CLEAR); BILIRUBIN,URINE NEGATIVE (NEGATIVE); COLOR,URINE LIGHT-YELLOW (YELLOW); GLUCOSE, URINE (UA) NEGATIVE (NEGATIVE); KETONES,URINE NEGATIVE (NEGATIVE); LEUKOCYTE ESTERASE ,URINE NEGATIVE Leu/uL (NEGATIVE); NITRATE,URINE NEGATIVE (NEGATIVE); OCCULT BLOOD,URINE NEGATIVE (NEGATIVE); PH,URINE 5.5 (5.0-8.0); PROTEIN,URINE NEGATIVE (NEGATIVE); UROBILINOGEN,URINE 0.2 mg/dL (0.2-1.0)
[2022-07-23 20:03] LABS: BACTERIA,URINE RARE /HPF (None Seen); MUCUS,URINE RARE LPF (None Seen); SQUAMOUS EPITHELIAL CELL,UR RARE /HPF (0-2)
[2022-07-23] MEDS ORDERED: ATORVASTATIN 40 MG TABLET PO SCH (21:00)
[2022-07-23 21:13] LABS: BASOPHILS % (AUTO) 1.3 % (0.0-5.0); HEMATOCRIT 35.8 % (42-54); LYMPHOCYTES % (AUTO) 17.6 % (21.0-51.0); MEAN CORPUSCULAR HEMOGLOBIN 31.4 pg (27.0-33.0); MEAN CORPUSCULAR HGB CONC 33.8 g/dL (32.0-36.0); MONOCYTES % (AUTO) 9.1 % (3.0-13.0); NEUTROPHILS % (AUTO) 69.7 % (40.0-77.0); PLATELET COUNT (AUTO) 284 K/uL (130-400); RED BLOOD CELL COUNT(AUTO) 3.85 MIL/uL (4.50-6.20); RED CELL DISTRIBUTION WIDTH 13.4 % (11.0-15.5); WHITE BLOOD COUNT (AUTO) 7.6 K/uL (4.8-10.8)
[2022-07-23 21:26] LABS: CREATININE 1.3 mg/dL (0.5-1.5); POTASSIUM 3.8 mmol/L (3.5-5.1)
[2022-07-23 21:29] LABS: ALBUMIN 2.8 g/dL (3.5-5.0); HEMOGLOBIN A1C 5.5 % (4.0-6.0); TOTAL PROTEIN, SERUM 6.9 g/dL (6.0-8.3)
[2022-07-24] MEDS ORDERED: AEC81 PO (04:04)
[2022-07-24] MEDS ORDERED: ATOR40TA71 PO (04:04)
[2022-07-24 04:20] VITALS: BP 120/69
[2022-07-24 08:00] VITALS: BP 135/70
[2022-07-24 08:48] LABS: HEMATOCRIT 40.1 % (42-54); MEAN CORPUSCULAR HGB CONC 32.9 g/dL (32.0-36.0); MEAN CORPUSCULAR VOLUME 94.1 fL (79-99); RED BLOOD CELL COUNT(AUTO) 4.26 MIL/uL (4.50-6.20); RED CELL DISTRIBUTION WIDTH 13.5 % (11.0-15.5); WHITE BLOOD COUNT (AUTO) 7.6 K/uL (4.8-10.8)
[2022-07-24 08:57] LABS: CREATININE 1.3 mg/dL (0.5-1.5); POTASSIUM 3.8 mmol/L (3.5-5.1)
[2022-07-24] MEDS ORDERED: CLOPIDOGREL 75MG TAB PO SCH (09:00)
[2022-07-24] MEDS ORDERED: ASPIRIN 81MG CHEW TAB PO SCH (09:00)
[2022-07-24 12:00] VITALS: BP 117/61
== END 2022-07-24 14:35 | disposition home or self-care (01) ==
LOC: EDH 13:34 → INTOOBSV 13:35 → EDHIP 13:35 → 4AH 07-24 04:21
PROVIDERS: ADMIT Internal Medicine; ATTEND Internal Medicine
DX: M79.672 Pain in left foot (principal); E11.51 Type 2 diabetes mellitus with diabetic peripheral angiopathy without gangrene; I10 Essential (primary) hypertension; E78.5 Hyperlipidemia, unspecified; I73.9 Peripheral vascular disease, unspecified; E11.9 Type 2 diabetes mellitus without complications; R53.81 Other malaise; Z89.431 Acquired absence of right foot; Z53.20 Procedure and treatment not carried out because of patient's decision for unspecified reasons; Z60.8 Other problems related to social environment; Z79.82 Long term (current) use of aspirin; Z79.899 Other long term (current) drug therapy; Z63.32 Other absence of family member; Z98.890 Other specified postprocedural states; W07.XXXA Fall from chair, initial encounter; Y92.89 Other specified places as the place of occurrence of the external cause; Y93.89 Activity, other specified; Y99.8 Other external cause status
CPT/HCPCS: 99284; 83036; 80053; 85025; 86140; 81001; 36415 ×2; 73630; 84145; 82550; 80048; 85027; G0378 ×21